=== PATIENT | female | born 1950 | race Two or more races ===

== ENCOUNTER → 2018-10-06 | Outpatient (CLI) | payer MEDICARE, OTHER | END | disposition home or self-care (01) | LOC: RADPV 10:22 | PROVIDERS: ATTEND Orthopaedic Surgery | DX: M25.461 Effusion, right knee (principal); S82.04 Comminuted fracture of patella; X58.XXXD Exposure to other specified factors, subsequent encounter ==